=== PATIENT | female | born 1995 | race Caucasian/White ===

== ENCOUNTER 2016-11-08 16:56 | Emergency (ER) | payer OTHER ==
[2016-11-08 17:08] LABS: % IMMATURE GRANULYOCYTES 0.4 % (0.0-1.1); ABSOLUTE IMMATURE GRANULOCYTES 0.08 10^3/uL (0.00-0.10); ADD DIFF? NO; ADD MORPH? NO; ADD SCAN? NO; ATYPICAL LYMPHOCYTE FLAG 0 (0-99); FRAGMENT RBC FLAG 0 (0-99); HEMATOCRIT 42.7 % (38.0-47.0); HEMOGLOBIN 15.5 g/dL (12.6-16.3); LEFT SHIFT FLG 0 (0-99); LIPEMIA HEMOLYSIS FLAG 90 (0-99); MEAN CELL HEMOGLOBIN CONCENTR. 36.3 g/dL (32.4-36.7); MEAN CELL VOLUME 96.4 fL (81.5-99.8); MEAN PLATELET VOLUME 10.4 fL (8.7-11.7); PLATELET CLUMPS FLAG 0 (0-99); PLATELET COUNT 279 10^3/uL (150-400); RED BLOOD CELL COUNT 4.43 10^6/uL (4.18-5.33); RED CELL DISTRIBUTION WIDTH 12.7 % (11.5-15.2)
[2016-11-08 17:10] VITALS: TEMP 98.1
[2016-11-08] MEDS ORDERED: NS 1,000 ML IV ONE (17:13)
--- NOTE | 2016-11-08 17:22 | CPEKG ---
Heart Rate: 80 RR Interval: 750 P-R Interval: 152 QRSD Interval: 94 QT Interval: 392 QTC Interval: 453 P [place]: 77 QRS [place]: 67 T Wave [place]: 35 EKG Severity - NORMAL ECG - EKG Impression: SINUS RHYTHM Electronically Signed By: Eddie Gant 09-Nov-2016 00:17:22
--- NOTE | 2016-11-08 17:31 | EDPHY ---
HPI/HX/ROS/PE/MDM Narrative: CHIEF COMPLAINT: Intentional Overdose HPI: The patient is a 21-year-old female who states that at approximately 9:00 a.m. this morning she intentionally overdosed on 2 separate medications in an attempt to hurt herself. She refuses to tell me the details surrounding this. She denies recent alcohol use or any other ingestants. She estimates she took approximately 20-30 tabs of generic Excedrin which contains 250 mg of acetaminophen, 250 mg of aspirin and 65 mg of caffeine per tablet. She also took approximately 20-30 pills of a weight loss supplement called Super HD Xtreme. This medication contains caffeine but no dosage amount is present on the bottle. The patient denies any symptoms at this time. No seizure. No vomiting. She was placed on an M1 hold by police. REVIEW OF SYSTEMS: Aside from elements discussed in the HPI, a comprehensive 10-point review of systems was reviewed and is negative. PMH: Includes depression. Denies other medical history. SOCIAL HISTORY: Admits to alcohol use but none recently. Denies other drug abuse. PHYSICAL EXAM: General:Patient is alert, in no acute distress. ENT:Eyes are normal to inspection. ENT inspection normal. Neck: Normal inspection. Full range of motion. Respiratory:No respiratory distress. Breath sounds normal bilaterally. Cardiovascular: Regular rate and rhythm. Strong peripheral pulses. Normal cap refill. Abdomen:The abdomen is nontender to palpation. There are no peritoneal signs. There are normal bowel sounds. Back: Normal to inspection. No tenderness to palpation. Skin: Normal color. No rash. Warm and dry. Extremities: Normal appearance. Full range of motion. Neuro: Oriented x3. Normal motor function. Normal sensory function. Psychiatric: Pleasant, interactive. (Eddie Gant) ED Course: I consulted [facility] regarding the patient's ingestion. Case #[id number]. They recommend to declining aspirin levels q.2 hours and a total of 6 hours of observation to the clear the patient medically clear. They recommend IV fluids and supportive care. 11:45 p.m.: The patient now has normalized chemistry panel and 3 salicylate levels that are consistently declining. She is officially medically clear. She requires psychiatric evaluation and likely inpatient placement. (Eddie Gant) 5:20 a.m.- The patient was stable throughout my emergency department shift. She was evaluated by the mental health worker Niru. The patient is able to contract for safety and the plan is for discharge. She is a [facility] patient and the crisis team has been notified. They will since someone to the patient's house on Thursday to set up outpatient treatment and management. Niru believes many of her symptoms stem from alcohol use. She will get counseling for detox as well. Her mother has arrived from [place] and will stay with her until the [facility] crisis team arrived. The patient is in agreement with this plan. ( Brooke Nair) - Data Points Laboratory Results: Laboratory Results 11/08/16 16:55 11/08/16 21:41 11/08/16 11/08/16 11/08/16 21:41 19:40 19:20 Sodium 143 mEq/L (134-144) Potassium 4.4 mEq/L (3.5-5.2) Chloride 110 mEq/L (97-110) Carbon Dioxide 18 L mEq/l (22-31) Anion Gap 15 mEq/L (8-16) BUN 13 mg/dL (7-23) Creatinine 1.0 mg/dL (0.6-1.0) Estimated GFR > 60 Glucose 82 mg/dL (70-100) Calcium 9.4 mg/dL (8.5-10.4) Total Bilirubin Conjugated Bilirubin Unconjugated Bilirubin AST ALT Alkaline Phosphatase Total Protein Albumin Beta HCG, Qual Salicylates 16.1 mg/dL 17.6 mg/dL (2.0-20.0) (2.0-20.0) Urine Opiates Screen NEGATIVE (NEGATIVE) Acetaminophen Urine Barbiturates NEGATIVE (NEGATIVE) Ur Phencyclidine Scrn NEGATIVE (NEGATIVE) Ur Amphetamine Screen NEGATIVE (NEGATIVE) U Benzodiazepines Scrn NEGATIVE (NEGATIVE) Urine Cocaine Screen NEGATIVE (NEGATIVE) U Marijuana (THC) Screen NEGATIVE (NEGATIVE) 11/08/16 11/08/16 17:04 16:55 Sodium 150 H mEq/L (134-144) Potassium 4.3 mEq/L (3.5-5.2) Chloride 111 H mEq/L (97-110) Carbon Dioxide 20 L mEq/l (22-31) Anion Gap 19 mEq/L (8-16) BUN 13 mg/dL (7-23) Creatinine 1.1 H mg/dL (0.6-1.0) Estimated GFR > 60 Glucose 80 mg/dL (70-100) Calcium 9.8 mg/dL (8.5-10.4) Total Bilirubin 0.5 mg/dL (0.1-1.4) Conjugated Bilirubin 0.5 mg/dL (0.0-0.5) Unconjugated Bilirubin 0.0 mg/dL (0.0-1.1) AST 38 IU/L (14-46) ALT 34 IU/L (9-52) Alkaline Phosphatase 66 IU/L (38-126) Total Protein 7.9 g/dL (6.3-8.2) Albumin 4.7 g/dL (3.5-5.0) Beta HCG, Qual NEGATIVE Salicylates 20.2 H mg/dL (2.0-20.0) Urine Opiates Screen Acetaminophen < 10 L mcg/mL (10.0-30.0) Urine Barbiturates Ur Phencyclidine Scrn Ur Amphetamine Screen U Benzodiazepines Scrn Urine Cocaine Screen U Marijuana (THC) Screen Medications Given: Discontinued Medications Sodium Chloride (Ns) 1,000 mls @ 0 mls/hr IV ONCE ONE PRN Reason: Wide Open Stop: 11/08/16 17:14 Last Admin: 11/08/16 17:28 Dose: 1,000 mls Miscellaneous Medication (Gi Cocktail) 55 ml PO EDNOW ONE Stop: 11/09/16 03:52 Last Admin: 11/09/16 03:55 Dose: 55 ml Ondansetron HCl (Zofran) 4 mg IVP EDNOW ONE Stop: 11/08/16 22:00 Last Admin: 11/08/16 22:00 Dose: 4 mg General Initial Vital Signs: Initial Vital Signs Temperature (C) 36.7 C 11/08/16 17:00 Heart Rate 90 11/08/16 17:00 Respiratory Rate 14 11/08/16 17:00 Blood Pressure 136/86 H 11/08/16 17:00 O2 Sat (%) 99 11/08/16 17:00 O2 Delivery Mode Room Air Allergies/Adverse Reactions: No Known Allergies Allergy (Unverified 11/08/16 17:11) Home Medications: Medication Instructions Recorded NK [No Known Home Meds] 11/08/16 Departure - Departure Disposition: Home, Routine, Self-Care Clinical Impression: Attempted suicide, Intentional caffeine overdose Salicylate overdose Qualifiers: Encounter type: initial encounter Injury intent: intentional self-harm Qualifier Code: (T39.092A) Poisoning by salicylates, intentional self-harm, initial encounter Condition: Good Instructions: Depression (ED) Referrals: OUT OF STATE,. [Primary Care Provider] - As per Instructions
[2016-11-08 17:36] LABS: ANION GAP 19 mEq/L (8-16); CALCIUM 9.8 mg/dL (8.5-10.4); CARBON DIOXIDE 20 mEq/l (22-31); CHLORIDE 111 mEq/L (97-110); CREATININE 1.1 mg/dL (0.6-1.0); GLOMERULAR FILTRATION RATE > 60; GLUCOSE 80 mg/dL (70-100); POTASSIUM 4.3 mEq/L (3.5-5.2); SALICYLATE 20.2 mg/dL (2.0-20.0); SODIUM 150 mEq/L (134-144)
[2016-11-08 18:56] LABS: ALBUMIN 4.7 g/dL (3.5-5.0); BILIRUBIN,TOTAL 0.5 mg/dL (0.1-1.4); BILIRUBIN-CONJUGATED 0.5 mg/dL (0.0-0.5); TOTAL PROTEIN 7.9 g/dL (6.3-8.2)
[2016-11-08 20:10] LABS: SALICYLATE 17.6 mg/dL (2.0-20.0)
[2016-11-08] MEDS ORDERED: ONDANSETRON 4 MG/2 ML VIAL ONE (21:53)
[2016-11-08] MEDS ORDERED: ONDANSETRON 4 MG/2 ML VIAL IVP ONE (21:59)
[2016-11-08 22:18] LABS: ANION GAP 15 mEq/L (8-16); CALCIUM 9.4 mg/dL (8.5-10.4); CARBON DIOXIDE 18 mEq/l (22-31); CHLORIDE 110 mEq/L (97-110); GLOMERULAR FILTRATION RATE > 60; GLUCOSE 82 mg/dL (70-100); POTASSIUM 4.4 mEq/L (3.5-5.2); SODIUM 143 mEq/L (134-144)
[2016-11-08 23:32] VITALS: BP 130/70; PULSE 100; RESP 16; O2SAT 97
[2016-11-08 23:42] LABS: SALICYLATE 16.1 mg/dL (2.0-20.0)
[2016-11-09] MEDS ORDERED: MAALOX/LIDO/HYOSC GI COCKTAIL 55 ML BOTTLE PO ONE (03:51)
== END 2016-11-09 05:45 | disposition home or self-care (01) ==
DX: T39.1X2A Poisoning by 4-Aminophenol derivatives, intentional self-harm, initial encounter (principal); T43.612A Poisoning by caffeine, intentional self-harm, initial encounter; T39.092A Poisoning by salicylates, intentional self-harm, initial encounter
CPT/HCPCS: 80305; 96374; G0480; J2405